=== PATIENT | male | born 1945 | race Caucasian/White ===

== ENCOUNTER 2016-08-07 16:44 | Emergency (ER) | payer MEDICARE ==
--- NOTE | 2016-08-07 17:49 | ED ---
Upper Extremity HPI - General Chief Complaint: Extremity Injury, Upper Stated Complaint: Hand Injury Time Seen by Provider: 08/07/16 17:16 Source: patient, RN notes reviewed Mode of arrival: ambulatory Limitations: no limitations - History of Present Illness Initial Comments: Patient is a 71-year-old male presents to the emergency room for evaluation of left fourth finger dislocation. Patient states he was working on a lawnmower outside and went to put his hand inside the health claims examiner and the blade turned on and hit his finger. Patient denies any lacerations. Patient states the blade hit his finger and dislocated it. Patient states he is having 10 out of 10 pain. Patient denies any other injuries during incident. - Related Data Home Medications Medication Instructions Recorded Confirmed Losartan/Hydrochlorothiazide 1 tab PO DAILY 08/07/16 08/07/16 [Hyzaar 100-12.5 Tablet] Pantoprazole Sodium [Protonix] 1 tab PO DAILY 08/07/16 08/07/16 amLODIPine BESYLATE [Norvasc] 1 tab PO DAILY 08/07/16 08/07/16 metFORMIN HCL 1 tab PO DAILY 08/07/16 08/07/16 Allergies Allergy/AdvReac Type Severity Reaction Status Date / Time No Known Allergies Allergy Verified 08/07/16 17:07 Review of Systems ROS Statement: Those systems with pertinent positive or pertinent negative responses have been documented in the HPI. ROS Other: All systems not noted in ROS Statement are negative. Past Medical History Past Medical History: GERD/Reflux, Hypertension History of Any Multi-Drug Resistant Organisms: None Reported Past Surgical History: No Surgical Hx Reported Past Psychological History: No Psychological Hx Reported Smoking Status: Never smoker Past Alcohol Use History: Occasional Past Drug Use History: None Reported General Exam - General Exam Comments Initial Comments: Sitting in exam room, no acute distress. Limitations: no limitations General appearance: alert, in no apparent distress Head exam: Present: atraumatic, normocephalic, normal inspection Eye exam: Present: normal appearance ENT exam: Present: normal exam Neck exam: Present: normal inspection Respiratory exam: Absent: respiratory distress Left Hand Wrist exam: Present: tenderness (Palpating over the entire fourth digit), swelling (fourth digit), deformity (Deformity at the PIP joint of the left fourth digit). Absent: normal inspection, full ROM Vascular: Present: normal capillary refill (Capillary refill less than 2 seconds ), radial pulse (2+), ulnar pulse (2+) Back exam: Present: normal inspection Neurological exam: Present: alert, oriented X3, CN II-XII intact Psychiatric exam: Present: normal affect, normal mood Skin exam: Present: warm, dry, intact, normal color. Absent: rash Course Vital Signs 08/07/16 08/07/16 17:09 19:03 Temperature 98.2 F 98.0 F Pulse Rate 84 65 Respiratory 20 18 Rate Blood Pressure 163/84 155/83 O2 Sat by Pulse 98 96 Oximetry Procedures - Nerve Block Consent Obtained: verbal consent Local Anesthetic Used: Lidocaine 1% Amount of anesthesia used: 5 Side: left Nerve Blocks: digital Procedure Successful: Yes Complications: none Patient Tolerated Procedure: well, no complications - Orthopedic Joint Reduction Joint #1 Consent Obtained: verbal consent Side: left Joint Reduction Location: finger (fourth) Analgesia: digital block Local Anesthetic Used: Lidocaine 1% Amount of Anesthetic Used (mLs): 5 Technique Used: direct manipulation Post-Reduction Neuro Exam: intact Post-Reduction Vascular Exam: intact Post Reduction X-Ray Obtained: Yes Post Reduction X-Ray Results: reduced Splint Applied: Yes Patient Tolerated Procedure: well, no complications Medical Decision Making - Medical Decision Making Patient is a 71-year-old male presents to the emergency room for evaluation of left fourth finger dislocation. Finger dislocation was reduced. Patient also noted to have nondisplaced fracture of the dital phalanx. Patient placed in a finger splint and advised to follow-up with either realty loan specialist or primary care provider. Patient states he understands everything that was discussed with him. Return parameters discussed. Case discussed with Dr. Ritchie. - Radiology Data Radiology results: report reviewed, image reviewed Disposition Clinical Impression: Finger dislocation, Finger fracture, left Disposition: HOME SELF-CARE Condition: Good Instructions: Finger Dislocation (ED), Finger Fracture (ED) Additional Instructions: Ice on and off for 10-15 minutes for the next 24-48 hours. Take Tylenol or Motrin as needed for pain. Please follow-up with realty loan specialist or primary care provider in 24-48 hours for reevaluation. If new symptoms develop or symptoms worsen, please return to the ER. Referrals: Portillo Kwon MD [Primary Care Provider] - 1-2 days Mark Hyatt DO [Doctor of Osteopathic Medicine] - 1-2 days Time of Disposition: 18:41
--- NOTE | 2016-08-07 18:01 | XR ---
EXAMINATION TYPE: XR finger LT - 5V DATE OF EXAM: 08/07/2016 5:40 PM COMPARISON: NONE HISTORY: Pain after trauma TECHNIQUE: 5 views with attention to the ring finger FINDINGS: 1. Fourth finger: There is medial dislocation of the middle phalanx with respect to the fourth proxi mal phalanx. There is no gross fracture but tiny flecks of calcium at the fourth proximal interphalan geal joint are noted. 2. Fourth finger: Distally, there is an oblique linear lucency consistent with nondisplaced fracture involving the medial base of the distal phalanx. IMPRESSION: ABNORMAL STUDY, WITH 2 RING FINGER POINTS OF INTEREST.
--- NOTE | 2016-08-07 19:00 | XR ---
EXAMINATION TYPE: XR finger LT DATE OF EXAM: 08/07/2016 6:24 PM COMPARISON: Prereduction views from earlier this evening HISTORY: Post reduction views TECHNIQUE: Reviews FINDINGS: There has been interval reduction of the fourth PIP with current anatomic positioning and alignment. The nondisplaced fracture of the distal phalanx base is unchanged. IMPRESSION: INTERVAL REDUCTION OF THE FOURTH PIP ARTICULATION.
[2016-08-07 19:04] VITALS: BP 155/83; PULSE 65; RESP 18; TEMP 98
== END 2016-08-07 19:04 | disposition home or self-care (01) ==
LOC: EC 16:44
DX: S62.665A Nondisplaced fracture of distal phalanx of left ring finger, initial encounter for closed fracture (principal); S63.255A Unspecified dislocation of left ring finger, initial encounter; K21.9 Gastro-esophageal reflux disease without esophagitis; I10 Essential (primary) hypertension; Z79.84 Long term (current) use of oral hypoglycemic drugs; Z79.899 Other long term (current) drug therapy; W22.8XXA Striking against or struck by other objects, initial encounter
CPT/HCPCS: 26755; 99283

== ENCOUNTER → 2016-09-12 | Outpatient (CLI) | payer MEDICARE ==
--- NOTE | 2016-09-12 09:57 | US ---
EXAMINATION TYPE: US duplex aorta DATE OF EXAM: 09/12/2016 7:54 AM COMPARISON: NONE CLINICAL HISTORY: Z78.9 Screening For AAA. Screening for AAA EXAM MEASUREMENTS: Abdominal Aorta: Proximal: 2.6 x 2.6 cm Mid: 2.1 x 2.2 cm Distal: 2.2 x 2.3 cm Bifurcation: BHAVIN: 1.2 x 1.1 cm LEE: 1.4 x 1.1 cm Wall calcifications seen/ No evidence of AAA, aorta appeared slightly ectatic Aorta is seen in its entirety to iliac bifurcation. Color images show satisfactory arterial phasicity . IMPRESSION: No ultrasound evidence for greater than 3 cm abdominal aortic aneurysm.
== END | disposition home or self-care (01) ==
LOC: RADUSWWP 07:41
PROVIDERS: ATTEND Family Medicine
DX: Z13.6 Encounter for screening for cardiovascular disorders (principal)
CPT/HCPCS: 93976; 93979